=== PATIENT | female | born 1940 | race Caucasian/White ===

== ENCOUNTER → 2023-01-01 | Outpatient (CLI) | payer BC, MEDICARE | LOC: US 00:04 | PROVIDERS: ATTEND Orthopaedic Surgery | DX: I99.9 Unspecified disorder of circulatory system (principal); I49.9 Cardiac arrhythmia, unspecified ==

== ENCOUNTER → 2023-01-22 | Outpatient (CLI) | payer BC, MEDICARE ==
[2023-01-22 14:18] LABS: BILIRUBIN Negative (Negative); BLOOD Negative (Negative); CLARITY Clear (Clear); COLOR Dark Yellow (Yellow); GLUCOSE Negative (Negative); KETONE Trace (Negative); LEUKO ESTERASE Trace (Negative); NITRITE Negative (Negative); PH 5.5 (4.5-8.0)
[2023-01-22 14:18] LABS: BASO % 0.5 % (0.0-1.0); EOS # 0.1 10*3/uL (0.0-0.4); EOS % 0.8 % (1.0-4.0); HEMATOCRIT 40.3 % (37.0-47.0); LYMPH # 2.2 10*3/uL (1.3-4.4); LYMPH % 37.1 % (27.0-41.0); MEAN CELL VOLUME 99.8 fl (81.0-99.0); MEAN CORPUSCULAR HGB 33.2 pg (27.0-31.0); MEAN CORPUSCULAR HGB CONC 33.3 g/dl (33.0-37.0); MEAN PLATELET VOLUME 9.4 fl (9.6-12.3); MONO # 0.5 10*3/uL (0.1-1.0); MONO % 7.6 % (3.0-9.0); NEUT # 3.2 10*3/uL (2.3-7.9); NEUT % 53.7 % (47.0-73.0); PLATELET COUNT AUTOMATED 284 10*3/uL (130-400); RED BLOOD COUNT 4.04 10*6/uL (4.10-5.10)
[2023-01-22 14:26] LABS: BACTERIA 1+
[2023-01-22 14:42] LABS: ALKALINE PHOSPHATASE 114 U/L (46-116); BUN 10 mg/dl (9-23); CHLORIDE 96 mmol/L (98-107); SGPT/ALT 24 U/L (10-49); TOTAL PROTEIN 7.2 gm/dL (6.0-8.0)
== END | disposition home or self-care (01) ==
LOC: LAB 01:40
PROVIDERS: ATTEND Orthopaedic Surgery
DX: Z01.818 Encounter for other preprocedural examination (principal); I49.8 Other specified cardiac arrhythmias; M17.12 Unilateral primary osteoarthritis, left knee; Z79.01 Long term (current) use of anticoagulants

== ENCOUNTER → 2023-01-29 | Outpatient (CLI) | payer BC, MEDICARE ==
[2023-01-29 14:43] LABS: BUN 13 mg/dl (9-23); CHLORIDE 97 mmol/L (98-107); POTASSIUM 4.3 mmol/L (3.4-5.1)
== END | disposition home or self-care (01) ==
LOC: LAB 01-28 15:17
PROVIDERS: ATTEND Orthopaedic Surgery
DX: M17.12 Unilateral primary osteoarthritis, left knee (principal); R79.9 Abnormal finding of blood chemistry, unspecified

== ENCOUNTER → 2023-02-04 | Outpatient (CLI) | payer BC, MEDICARE ==
[2023-02-04 14:05] LABS: BUN 10 mg/dl (9-23); CHLORIDE 97 mmol/L (98-107); POTASSIUM 4.2 mmol/L (3.4-5.1)
== END | disposition home or self-care (01) ==
LOC: LAB 13:16
PROVIDERS: ATTEND Orthopaedic Surgery
DX: R79.9 Abnormal finding of blood chemistry, unspecified (principal)

== ENCOUNTER → 2023-02-26 | Outpatient (CLI) | payer OTHER | END | disposition home or self-care (01) | LOC: US 12:03 | PROVIDERS: ATTEND Podiatrist Foot & Ankle Surgery | DX: I82.409 Acute embolism and thrombosis of unspecified deep veins of unspecified lower extremity (principal); M79.89 Other specified soft tissue disorders ==

== ENCOUNTER 2023-10-07 18:50 | Emergency (ER) | payer OTHER ==
[2023-10-07] MEDS ORDERED: ALLOPURINOL100 MG PO (23:07)
[2023-10-07] MEDS ORDERED: AMIODARONE HCL400 MG PO (23:08)
[2023-10-07] MEDS ORDERED: ELIQUIS2.5 M1 PO (23:09)
[2023-10-07] MEDS ORDERED: AMOX-CLAV 875-1 EACH PO (23:09)
[2023-10-07] MEDS ORDERED: PROZAC20 MG PO (23:11)
[2023-10-07] MEDS ORDERED: AIRDUO DIGIHAL1 EACH MM (23:13)
[2023-10-07] MEDS ORDERED: LEVOTHYROXINE25 MCG PO (23:15)
== END 2023-10-08 00:17 ==
LOC: ED 18:50
DX: R00.1 Bradycardia, unspecified (principal); I50.9 Heart failure, unspecified; F17.210 Nicotine dependence, cigarettes, uncomplicated